=== PATIENT | female | born 1950 | race Caucasian/White ===

== ENCOUNTER 2023-01-04 10:59 | Observation (INO) | payer MEDICARE, OTHER ==
[~2023-01-04 10:59] MED LIST: GASTROGRAFIN 30 ML BOT ONE
[2023-01-04 11:34] LABS: #Monocytes 0.4 thou/uL (0.11-0.59); #Neutrophils 4.4 thou/uL (1.40-6.50); %Basophils 0.6 % (0.0-1.0); %Eosinophils 0.4 % (0.0-10.0); %Lymphocytes 27.4 % (21.0-51.0); %Monocytes 6.3 % (0.0-10.0); %Neutrophils 65.2 % (42.0-75.0); Hematocrit 42.1 % (36.0-47.0); Hemoglobin 14.1 g/dL (12.0-16.0); Mean Corpuscular HGB CONC 33.5 g/dL (32.0-36.0); Mean Corpuscular Hemoglobin 31.8 pg (27.0-31.0); Mean Platelet Volume 10.3 fL (7.4-10.4); Platelet Count 210 10x3/uL (130-400); RBC Distribution Width 15.7 % (11.5-14.5); Red Blood Cell (RBC) Count 4.43 mill/uL (4.20-5.40); White Blood Cell (WBC) Count 6.7 10x3/uL (4.8-10.8)
[2023-01-04 11:47] LABS: PTT 28.8 sec (22.9-36.1); Prothrombin Time 13.4 sec (12.0-14.7)
[2023-01-04 11:57] LABS: ALT (SGPT) 10 U/L (8-55); AST (SGOT) 19 U/L (5-34); Albumin 4.2 g/dL (3.4-4.8); Alkaline Phosphatase 65 U/L (40-110); Anion Gap 13 mmol/L (10-20); BUN (Urea Nitrogen) 13 mg/dL (9.8-20.1); Bilirubin, Total 0.8 mg/dL (0.2-1.2); Calc. Creatinine Clearance 0 mL/min (70-130); Calcium 9.6 mg/dL (7.8-10.44); Carbon Dioxide 29 mmol/L (23-31); Chloride 99 mmol/L (98-107); Estimated GFR 83; Globulin 3.9 g/dL (2.4-3.5); Glucose 108 mg/dL (83-110); Lipase 19 U/L (8-78); Protein, Total 8.1 g/dL (5.8-8.1); Sodium 137 mmol/L (136-145)
[2023-01-04] MEDS ORDERED: Atropine Sulfate 1 mg/10 ml Syringe ONE (11:59)
[2023-01-04 12:02] LABS: Troponin I 0.012 ng/mL (< 0.028)
[2023-01-04 12:20] LABS: Magnesium 1.9 mg/dL (1.6-2.6)
[2023-01-04] MEDS ORDERED: Furosemide 40 MG/4 ML VIAL ONE (14:36)
[2023-01-04] MEDS ORDERED: Ondansetron ODT 4 MG TAB PO PRN (15:26)
[2023-01-04] MEDS ORDERED: Ondansetron PF 4 MG/2 ML Vial IVP PRN (15:26)
[2023-01-04] MEDS ORDERED: Acetaminophen 325 MG TAB PO PRN (15:26)
[2023-01-04] MEDS ORDERED: Acetaminophen 650 MG Suppository PR PRN (15:26)
[2023-01-04 15:39] VITALS: BMI 20.8
[2023-01-04 15:39] LABS: Bacteria/HPF None Seen HPF (None Seen); Bilirubin Negative (Negative); Blood, Urine Negative (Negative); CAUTI Indications for Culture Pelvic or flank pain; Clarity Clear (Clear); Glucose, Urine (Dipstick) Normal (Negative); Ketone, Urine Negative (Negative); Leukocyte Negative Leu/uL (Negative); Nitrite Negative (Negative); Protein, Urine (Dipstick) Negative (Neg-Trace); RBC/HPF 0-3 HPF (0-3); Specific Gravity, Urine 1.009 (1.002-1.036); Squamous Epithelial 0-3 HPF (0-3); Urobilinogen Normal mg/dL (Less than 2); WBC/HPF 0-3 HPF (0-3)
[2023-01-04 15:47] LABS: Urine Culture Reflex No No
[2023-01-04] MEDS ORDERED: Magnesium 2 GM/50 ML(in water) 2 GM in Premix 1 BAG IVPB SCH (16:00)
[2023-01-04] MEDS ORDERED: Electrolyte Replacement Protocol 1 EACH FS SCH (16:00)
[2023-01-04] MEDS: Nicotine 14 MG PATCH TD SCH (16:35)
[2023-01-04 18:33] LABS: Hematocrit 39.1 % (36.0-47.0); Hemoglobin 13.6 g/dL (12.0-16.0)
[2023-01-04 19:18] LABS: Troponin I 0.022 ng/mL (< 0.028)
[2023-01-04 22:47] LABS: Hematocrit 36.9 % (36.0-47.0); Hemoglobin 12.7 g/dL (12.0-16.0)
[2023-01-04 23:15] LABS: Troponin I 0.011 ng/mL (< 0.028)
[2023-01-05 04:54] LABS: Hematocrit 38.9 % (36.0-47.0); Hemoglobin 13.1 g/dL (12.0-16.0)
[2023-01-05 04:55] LABS: #Eosinphils 0.1 thou/uL (0.0-0.7); #Monocytes 0.5 thou/uL (0.11-0.59); #Neutrophils 3.2 thou/uL (1.40-6.50); %Basophils 0.6 % (0.0-1.0); %Eosinophils 1.2 % (0.0-10.0); %Lymphocytes 27.8 % (21.0-51.0); %Monocytes 9.2 % (0.0-10.0); %Neutrophils 60.8 % (42.0-75.0); Hematocrit 38.7 % (36.0-47.0); Hemoglobin 13.2 g/dL (12.0-16.0); Mean Corpuscular HGB CONC 34.1 g/dL (32.0-36.0); Mean Corpuscular Hemoglobin 31.9 pg (27.0-31.0); Mean Corpuscular Volume 93.5 fl (78.0-98.0); Mean Platelet Volume 10.4 fL (7.4-10.4); Platelet Count 187 10x3/uL (130-400); RBC Distribution Width 15.5 % (11.5-14.5); Red Blood Cell (RBC) Count 4.14 mill/uL (4.20-5.40); White Blood Cell (WBC) Count 5.2 10x3/uL (4.8-10.8)
[2023-01-05 05:21] LABS: Phosphorus 3.2 mg/dL (2.3-4.7)
[2023-01-05 05:23] LABS: Anion Gap 13 mmol/L (10-20); BUN (Urea Nitrogen) 14 mg/dL (9.8-20.1); Calc. Creatinine Clearance 67 mL/min (70-130); Calcium 8.8 mg/dL (7.8-10.44); Carbon Dioxide 27 mmol/L (23-31); Chloride 100 mmol/L (98-107); Estimated GFR 94; Glucose 110 mg/dL (83-110); Magnesium 2.3 mg/dL (1.6-2.6); Potassium 3.9 mmol/L (3.5-5.1); Sodium 136 mmol/L (136-145)
[2023-01-05 09:51] LABS: Hematocrit 38.3 % (36.0-47.0); Hemoglobin 13.2 g/dL (12.0-16.0)
[2023-01-05] MEDS ORDERED: Furosemide 40 MG/4 ML VIAL SLOW IVP SCH (10:00)
[2023-01-05] MEDS ORDERED: Metoprolol Tartrate 50 MG TAB PO SCH (15:00)
[2023-01-05] MEDS: Nicotine 14 MG PATCH TD SCH (15:58)
[2023-01-05 17:05] LABS: Hemoglobin 12.9 g/dL (12.0-16.0)
[2023-01-05] MEDS: Metoprolol Tartrate 50 MG TAB PO SCH (20:10)
[2023-01-05 23:01] LABS: Hematocrit 36.2 % (36.0-47.0); Hemoglobin 12.7 g/dL (12.0-16.0)
[2023-01-06] MEDS: Metoprolol Tartrate 50 MG TAB PO SCH (08:13)
[2023-01-06 12:13] VITALS: BP 164/70; TEMP 97.4
[2023-01-07] MEDS ORDERED: FLU VACC QS2023(65UP)/MF59C/PF 60 MCG/0.5 ML SYRINGE IM ONE (09:00)
== END 2023-01-06 12:55 | disposition home or self-care (01) ==
LOC: ERS 10:59 → 2SW 15:24
PROVIDERS: ADMIT Internal Medicine; ATTEND Internal Medicine
PROC: B246ZZZ Ultrasonography of Right and Left Heart (ICD-10-PCS; principal; 2023-01-04)
DX: R42 Dizziness and giddiness (principal); K92.1 Melena; I25.10 Atherosclerotic heart disease of native coronary artery without angina pectoris; I49.3 Ventricular premature depolarization; I11.0 Hypertensive heart disease with heart failure; I50.9 Heart failure, unspecified; Z90.11 Acquired absence of right breast and nipple; Z88.5 Allergy status to narcotic agent; Z91.041 Radiographic dye allergy status; Z91.018 Allergy to other foods; Z88.2 Allergy status to sulfonamides; Z79.899 Other long term (current) drug therapy
CPT/HCPCS: 71045; 74176; 80048; 80053; 81001; 83690; 83735 ×2; 83880; 84100; 84484 ×2; 85014 ×2; 85018 ×2; 85025 ×2; 85610; 85730; 86850; 86900; 86901; 93005; 93306; 96374; 96375 ×2; 96376 ×2; 99285; G0378 ×4; J0461; 36415; J1940; J3475; Q9963

== ENCOUNTER 2023-03-16 01:37 | Inpatient (IN) | payer OTHER ==
[2023-03-16 02:17] LABS: #Monocytes 0.9 thou/uL (0.11-0.59); #Neutrophils 5.1 thou/uL (1.40-6.50); %Basophils 0.4 % (0.0-1.0); %Eosinophils 0.4 % (0.0-10.0); %Lymphocytes 25.7 % (21.0-51.0); %Monocytes 10.7 % (0.0-10.0); %Neutrophils 62.4 % (42.0-75.0); Hematocrit 34.5 % (36.0-47.0); Hemoglobin 11.7 g/dL (12.0-16.0); Mean Corpuscular HGB CONC 33.9 g/dL (32.0-36.0); Mean Corpuscular Hemoglobin 32.5 pg (27.0-31.0); Mean Corpuscular Volume 95.8 fl (78.0-98.0); Platelet Count 202 10x3/uL (130-400); RBC Distribution Width 17.3 % (11.5-14.5); White Blood Cell (WBC) Count 8.1 10x3/uL (4.8-10.8)
[2023-03-16] MEDS ORDERED: Ipratropium/Albuterol 3 ML NEB ONE (02:40)
[2023-03-16] MEDS ORDERED: Nitroglycerin 2% Ointment 1 INCH/1 GM Packet ONE (02:40)
[2023-03-16] MEDS ORDERED: Magnesium 2 GM/50 ML BAG (IN WATER) ONE (02:41)
[2023-03-16 02:43] LABS: Troponin I 0.012 ng/mL (< 0.028)
[2023-03-16 02:46] LABS: ALT (SGPT) 9 U/L (8-55); AST (SGOT) 18 U/L (5-34); Albumin 3.3 g/dL (3.4-4.8); Alkaline Phosphatase 55 U/L (40-110); Anion Gap 9 mmol/L (10-20); BUN (Urea Nitrogen) 13 mg/dL (9.8-20.1); Bilirubin, Total 0.6 mg/dL (0.2-1.2); Calc. Creatinine Clearance 0 mL/min (70-130); Calcium 8.8 mg/dL (7.8-10.44); Carbon Dioxide 30 mmol/L (23-31); Chloride 101 mmol/L (98-107); Estimated GFR 92; Globulin 3.5 g/dL (2.4-3.5); Glucose 147 mg/dL (83-110); Potassium 3.9 mmol/L (3.5-5.1); Protein, Total 6.8 g/dL (5.8-8.1); Sodium 136 mmol/L (136-145)
[2023-03-16 07:00] LABS: Troponin I 0.013 ng/mL (< 0.028)
[2023-03-16 09:18] LABS: Troponin I Less than 0.010 ng/mL (< 0.028)
[2023-03-16] MEDS ORDERED: Bisacodyl 10 MG SUPP PR PRN (09:46)
[2023-03-16] MEDS ORDERED: Ondansetron PF 4 MG/2 ML Vial IVP PRN (09:46)
[2023-03-16] MEDS ORDERED: Dextrose 50% Abboject 50 ML SYRINGE SLOW IVP PRN (09:46)
[2023-03-16] MEDS ORDERED: Albuterol 2.5 MG (3 mL) NEB NEB PRN (09:46)
[2023-03-16] MEDS ORDERED: Dextrose 5% in Water 1,000 ML IV PRN (09:46)
[2023-03-16] MEDS ORDERED: Calcium Carbonate 500 MG ChewTAB PO PRN (09:46)
[2023-03-16] MEDS ORDERED: Acetaminophen 650 MG Suppository PR PRN (09:46)
[2023-03-16] MEDS ORDERED: HumaLOG 300 UNITS/3 ML VIAL SC PRN (09:46)
[2023-03-16] MEDS ORDERED: Ondansetron ODT 4 MG TAB PO PRN (09:46)
[2023-03-16] MEDS ORDERED: Glucagon 1 MG/ML KIT IM PRN (09:46)
[2023-03-16] MEDS ORDERED: Furosemide 20 MG TAB PO SCH (10:00)
[2023-03-16] MEDS ORDERED: Furosemide 40 MG (4 mL) VIAL ONE (11:19)
[2023-03-16] MEDS ORDERED: LevoFLOXacin 750 mg/D5W 150 ml Premix Bag ONE (11:19)
[2023-03-16] MEDS: LevoFLOXacin 750 mg/D5W 750 MG in Premix 1 BAG IVPB SCH (11:30)
[2023-03-16] MEDS: Furosemide 40 MG TAB PO SCH (11:31)
[2023-03-16] MEDS ORDERED: Furosemide 40 MG TAB ONE (11:33)
[2023-03-16] MEDS ORDERED: HumaLOG 300 UNITS/3 ML VIAL ONE (11:33)
[2023-03-16] MEDS: HumaLOG 300 UNITS/3 ML VIAL SC PRN (11:35)
[2023-03-16] MEDS: Ipratropium/Albuterol 3 ML NEB NEB SCH (12:24)
[2023-03-16] MEDS ORDERED: Simvastatin 40 MG TAB PO SCH (21:00)
[2023-03-16] MEDS: Metoprolol Tartrate 100 MG TAB PO SCH (21:57)
[2023-03-16] MEDS: Famotidine 20 MG TAB PO SCH (21:57)
[2023-03-16] MEDS: methylPREDNISolone Sod Succ 40 MG VIAL IVP SCH (21:57)
[2023-03-16] MEDS: Atorvastatin Calcium 20 MG TAB PO SCH (21:57)
[2023-03-17 05:55] LABS: #Monocytes 0.2 thou/uL (0.11-0.59); #Neutrophils 5.9 thou/uL (1.40-6.50); %Lymphocytes 9.3 % (21.0-51.0); %Monocytes 2.7 % (0.0-10.0); %Neutrophils 87.6 % (42.0-75.0); Hematocrit 31.4 % (36.0-47.0); Hemoglobin 10.5 g/dL (12.0-16.0); Mean Corpuscular HGB CONC 33.4 g/dL (32.0-36.0); Mean Corpuscular Hemoglobin 31.8 pg (27.0-31.0); Mean Corpuscular Volume 95.2 fl (78.0-98.0); Mean Platelet Volume 10.4 fL (7.4-10.4); Platelet Count 224 10x3/uL (130-400); RBC Distribution Width 17.2 % (11.5-14.5); White Blood Cell (WBC) Count 6.7 10x3/uL (4.8-10.8)
[2023-03-17 06:14] LABS: ALT (SGPT) 9 U/L (8-55); AST (SGOT) 16 U/L (5-34); Albumin 3.2 g/dL (3.4-4.8); Alkaline Phosphatase 54 U/L (40-110); Anion Gap 11 mmol/L (10-20); BUN (Urea Nitrogen) 18 mg/dL (9.8-20.1); Bilirubin, Total 0.5 mg/dL (0.2-1.2); Calc. Creatinine Clearance 64 mL/min (70-130); Calcium 8.7 mg/dL (7.8-10.44); Carbon Dioxide 27 mmol/L (23-31); Chloride 99 mmol/L (98-107); Estimated GFR 93; Globulin 3.2 g/dL (2.4-3.5); Glucose 189 mg/dL (83-110); Potassium 4.4 mmol/L (3.5-5.1); Protein, Total 6.4 g/dL (5.8-8.1); Sodium 133 mmol/L (136-145)
[2023-03-17] MEDS: Furosemide 40 MG TAB PO SCH (08:31)
[2023-03-17] MEDS: Aspirin Chewable 81 MG TAB PO SCH (08:31)
[2023-03-17] MEDS: Potassium Chloride 10 MEQ TAB PO SCH (08:31)
[2023-03-17] MEDS: Lisinopril 10 MG TAB PO SCH (08:31)
[2023-03-17] MEDS ORDERED: Non-Formulary Item 1 EACH (Potassium Chloride [Potassium Chloride] 10 MEQ Capsule.Er) PO SCH (09:00)
[2023-03-18] MEDS: Acetaminophen 325 MG TAB PO PRN (09:17)
[2023-03-18 18:49] LABS: #Monocytes 0.3 thou/uL (0.11-0.59); #Neutrophils 5.7 thou/uL (1.40-6.50); %Monocytes 3.8 % (0.0-10.0); %Neutrophils 80.8 % (42.0-75.0); Hematocrit 34.3 % (36.0-47.0); Hemoglobin 11.7 g/dL (12.0-16.0); Mean Corpuscular HGB CONC 34.1 g/dL (32.0-36.0); Mean Corpuscular Hemoglobin 31.8 pg (27.0-31.0); Mean Corpuscular Volume 93.2 fl (78.0-98.0); Platelet Count 311 10x3/uL (130-400); Red Blood Cell (RBC) Count 3.68 mill/uL (4.20-5.40); White Blood Cell (WBC) Count 7.1 10x3/uL (4.8-10.8)
[2023-03-18 19:12] LABS: ALT (SGPT) 10 U/L (8-55); AST (SGOT) 14 U/L (5-34); Albumin 3.3 g/dL (3.4-4.8); Alkaline Phosphatase 51 U/L (40-110); Anion Gap 11 mmol/L (10-20); BUN (Urea Nitrogen) 26 mg/dL (9.8-20.1); Bilirubin, Total 0.4 mg/dL (0.2-1.2); Calc. Creatinine Clearance 62 mL/min (70-130); Calcium 9.1 mg/dL (7.8-10.44); Carbon Dioxide 31 mmol/L (23-31); Chloride 95 mmol/L (98-107); Estimated GFR 90; Globulin 3.5 g/dL (2.4-3.5); Glucose 146 mg/dL (83-110); Potassium 4.1 mmol/L (3.5-5.1); Protein, Total 6.8 g/dL (5.8-8.1); Sodium 133 mmol/L (136-145)
[2023-03-18] MEDS: Senokot S 8.6-50 MG TAB PO PRN (20:55)
[2023-03-19 05:05] LABS: #Monocytes 0.2 thou/uL (0.11-0.59); #Neutrophils 5.8 thou/uL (1.40-6.50); %Monocytes 2.7 % (0.0-10.0); %Neutrophils 81.9 % (42.0-75.0); Hematocrit 33.3 % (36.0-47.0); Hemoglobin 11.1 g/dL (12.0-16.0); Mean Corpuscular HGB CONC 33.3 g/dL (32.0-36.0); Mean Corpuscular Hemoglobin 31.5 pg (27.0-31.0); Mean Corpuscular Volume 94.6 fl (78.0-98.0); Platelet Count 277 10x3/uL (130-400); RBC Distribution Width 16.8 % (11.5-14.5); Red Blood Cell (RBC) Count 3.52 mill/uL (4.20-5.40)
[2023-03-19 05:33] LABS: ALT (SGPT) 7 U/L (8-55); AST (SGOT) 13 U/L (5-34); Albumin 3.1 g/dL (3.4-4.8); Alkaline Phosphatase 51 U/L (40-110); Anion Gap 9 mmol/L (10-20); BUN (Urea Nitrogen) 23 mg/dL (9.8-20.1); Bilirubin, Total 0.4 mg/dL (0.2-1.2); Calc. Creatinine Clearance 62 mL/min (70-130); Carbon Dioxide 31 mmol/L (23-31); Chloride 96 mmol/L (98-107); Estimated GFR 92; Globulin 3.2 g/dL (2.4-3.5); Glucose 190 mg/dL (83-110); Potassium 4.2 mmol/L (3.5-5.1); Protein, Total 6.3 g/dL (5.8-8.1); Sodium 132 mmol/L (136-145)
[2023-03-20 05:32] LABS: #Monocytes 0.6 thou/uL (0.11-0.59); #Neutrophils 3.7 thou/uL (1.40-6.50); %Eosinophils 0.6 % (0.0-10.0); %Lymphocytes 37.2 % (21.0-51.0); %Monocytes 8.3 % (0.0-10.0); %Neutrophils 53.2 % (42.0-75.0); Hematocrit 34.9 % (36.0-47.0); Hemoglobin 11.8 g/dL (12.0-16.0); Mean Corpuscular HGB CONC 33.8 g/dL (32.0-36.0); Mean Corpuscular Hemoglobin 32.1 pg (27.0-31.0); Mean Corpuscular Volume 94.8 fl (78.0-98.0); Mean Platelet Volume 9.8 fL (7.4-10.4); Platelet Count 296 10x3/uL (130-400); RBC Distribution Width 16.8 % (11.5-14.5); Red Blood Cell (RBC) Count 3.68 mill/uL (4.20-5.40)
[2023-03-20 06:02] LABS: ALT (SGPT) 7 U/L (8-55); AST (SGOT) 13 U/L (5-34); Alkaline Phosphatase 44 U/L (40-110); Anion Gap 9 mmol/L (10-20); BUN (Urea Nitrogen) 24 mg/dL (9.8-20.1); Bilirubin, Total 0.4 mg/dL (0.2-1.2); Calc. Creatinine Clearance 59 mL/min (70-130); Carbon Dioxide 33 mmol/L (23-31); Chloride 95 mmol/L (98-107); Estimated GFR 87; Globulin 3.1 g/dL (2.4-3.5); Glucose 130 mg/dL (83-110); Magnesium 1.8 mg/dL (1.6-2.6); Potassium 3.9 mmol/L (3.5-5.1); Protein, Total 6.1 g/dL (5.8-8.1); Sodium 133 mmol/L (136-145)
[2023-03-20] MEDS: methylPREDNISolone Sod Succ 40 MG VIAL IVP SCH (09:38)
[2023-03-21 05:29] LABS: #Eosinphils 0.1 thou/uL (0.0-0.7); #Monocytes 0.6 thou/uL (0.11-0.59); #Neutrophils 3.9 thou/uL (1.40-6.50); %Basophils 0.1 % (0.0-1.0); %Eosinophils 1.6 % (0.0-10.0); %Lymphocytes 36.7 % (21.0-51.0); %Monocytes 8.4 % (0.0-10.0); Hematocrit 36.4 % (36.0-47.0); Hemoglobin 12.3 g/dL (12.0-16.0); Mean Corpuscular HGB CONC 33.8 g/dL (32.0-36.0); Mean Corpuscular Hemoglobin 31.6 pg (27.0-31.0); Mean Corpuscular Volume 93.6 fl (78.0-98.0); Mean Platelet Volume 9.9 fL (7.4-10.4); Platelet Count 336 10x3/uL (130-400); RBC Distribution Width 16.6 % (11.5-14.5); Red Blood Cell (RBC) Count 3.89 mill/uL (4.20-5.40); White Blood Cell (WBC) Count 7.5 10x3/uL (4.8-10.8)
[2023-03-21 05:44] LABS: Anion Gap 11 mmol/L (10-20); BUN (Urea Nitrogen) 23 mg/dL (9.8-20.1); Calc. Creatinine Clearance 54 mL/min (70-130); Calcium 9.1 mg/dL (7.8-10.44); Carbon Dioxide 32 mmol/L (23-31); Chloride 93 mmol/L (98-107); Estimated GFR 79; Glucose 109 mg/dL (83-110); Potassium 3.9 mmol/L (3.5-5.1); Sodium 132 mmol/L (136-145)
[2023-03-21 07:37] VITALS: BP 129/63; TEMP 98.1
== END 2023-03-21 11:48 | disposition home or self-care (01) | DRG 189 ==
LOC: ERS 01:37 → ERHOLD 05:47 → 2SW 15:17 → OBSVTOIN 03-18 13:05
PROVIDERS: ADMIT Internal Medicine Cardiovascular Disease; ATTEND Internal Medicine
DX: J96.21 Acute and chronic respiratory failure with hypoxia (principal); J44.1 Chronic obstructive pulmonary disease with (acute) exacerbation; I50.22 Chronic systolic (congestive) heart failure; I11.0 Hypertensive heart disease with heart failure; I25.2 Old myocardial infarction; Z88.8 Allergy status to other drugs, medicaments and biological substances; Z91.041 Radiographic dye allergy status; Z79.84 Long term (current) use of oral hypoglycemic drugs; Z79.899 Other long term (current) drug therapy; E78.5 Hyperlipidemia, unspecified; E11.9 Type 2 diabetes mellitus without complications; Z79.82 Long term (current) use of aspirin; F03.90 Unspecified dementia, unspecified severity, without behavioral disturbance, psychotic disturbance, mood disturbance, and anxiety; I49.3 Ventricular premature depolarization; R10.13 Epigastric pain; D64.9 Anemia, unspecified; Z88.0 Allergy status to penicillin; Z95.810 Presence of automatic (implantable) cardiac defibrillator; Z88.2 Allergy status to sulfonamides; Z91.013 Allergy to seafood; Z91.018 Allergy to other foods
CPT/HCPCS: 36415; 36416; 71045; 80048; 80053; 83735; 83880; 84484; 85025; 93005; 93010; 93306; 93880; 94640; 96375; 96376; G0378; J1815; J1940; J1956; J2920; J3475; J7620

== ENCOUNTER 2023-06-20 14:43 | Inpatient (IN) | payer OTHER ==
[2023-06-20] MEDS ORDERED: Acetaminophen 650 MG Suppository PR PRN (16:07)
[2023-06-20] MEDS ORDERED: Ondansetron PF 4 MG/2 ML Vial IVP PRN (16:07)
[2023-06-20] MEDS ORDERED: Ondansetron ODT 4 MG TAB PO PRN (16:07)
[2023-06-20] MEDS: Enoxaparin 40 MG (0.4 mL) SYRINGE SC SCH (16:53)
[2023-06-20] MEDS: cefTRIAXone\\ROCEPHIN 1 GM in Sodium Chloride 0.9% 100 ML IVPB SCH (16:53)
[2023-06-20] MEDS: Azithromycin 500 MG in Sodium Chloride 0.9% 250 ML 250 ML IVPB SCH (16:54)
[2023-06-20] MEDS: Furosemide 40 MG (4 mL) VIAL SLOW IVP SCH (16:54)
[2023-06-20] MEDS: methylPREDNISolone Sod Succ 40 MG VIAL IVP SCH (16:54)
[2023-06-20] MEDS ORDERED: Glucagon 1 MG/ML KIT IM PRN (17:53)
[2023-06-20] MEDS ORDERED: Dextrose 50% Abboject 50 ML SYRINGE SLOW IVP PRN (17:53)
[2023-06-20] MEDS ORDERED: Dextrose 5% in Water 1,000 ML IV PRN (17:53)
[2023-06-20] MEDS: Insulin Regular 300 UNITS/3 ML VIAL SC PRN (21:29)
[2023-06-20] MEDS: Montelukast Sodium 10 mg Tablet PO SCH (21:29)
[2023-06-20] MEDS: Famotidine 20 MG TAB PO SCH (21:29)
[2023-06-20] MEDS: Acetaminophen 325 MG TAB PO PRN (21:29)
[2023-06-20] MEDS: Atorvastatin Calcium 20 MG TAB PO SCH (21:29)
[2023-06-20] MEDS: metFORMIN 500 MG TAB PO SCH (21:29)
[2023-06-21 04:51] LABS: #Basophils Less than 0.03 10x3/uL (0.0-0.2); #Eosinphils Less than 0.03 10x3/uL (0.0-0.7); %Basophils 0.1 % (0.0-1.0); %Lymphocytes 6.9 % (21.0-51.0); %Monocytes 5.2 % (0.0-10.0); %Neutrophils 86.7 % (42.0-75.0); Hematocrit 44.2 % (36.0-47.0); Hemoglobin 14.2 g/dL (12.0-16.0); Mean Corpuscular HGB CONC 32.1 g/dL (32.0-36.0); Mean Corpuscular Hemoglobin 30.3 pg (27.0-31.0); Mean Corpuscular Volume 94.4 fL (78.0-98.0); Mean Platelet Volume 11.1 fL (7.4-10.4); Platelet Count 120 10x3/uL (130-400); RBC Distribution Width 18.4 % (11.5-14.5); Red Blood Cell (RBC) Count 4.68 mill/uL (4.20-5.40)
[2023-06-21 05:01] LABS: Anion Gap 18 mmol/L (10-20); BUN (Urea Nitrogen) 22 mg/dL (9.8-20.1); Calc. Creatinine Clearance 55 mL/min (70-130); Calcium 9.3 mg/dL (7.8-10.44); Carbon Dioxide 28 mmol/L (23-31); Chloride 94 mmol/L (98-107); Estimated GFR 87; Glucose 120 mg/dL (83-110); Potassium 4.2 mmol/L (3.5-5.1); Sodium 136 mmol/L (136-145)
[2023-06-21] MEDS: Furosemide 40 MG (4 mL) VIAL SLOW IVP SCH (06:48)
[2023-06-21] MEDS ORDERED: Lisinopril 10 MG TAB PO SCH (09:00)
[2023-06-21] MEDS: Empagliflozin 10 MG TAB PO SCH (09:59)
[2023-06-21] MEDS: Lisinopril 20 MG TAB PO SCH (09:59)
[2023-06-21] MEDS: TICAGRELOR 90 MG TABLET PO SCH (09:59)
[2023-06-21] MEDS: Enoxaparin 40 MG (0.4 mL) SYRINGE SC SCH (09:59)
[2023-06-21] MEDS: Senokot S 8.6-50 MG TAB PO PRN (09:59)
[2023-06-21] MEDS: Aspirin 81 mg Enteric Coated Tablet PO SCH (10:00)
[2023-06-21] MEDS: Insulin Regular 300 UNITS/3 ML VIAL SC PRN (10:00)
[2023-06-21] MEDS: HYDROcodone/Acetaminophen 5/325 mg Tablet PO PRN (14:01)
[2023-06-22 04:55] LABS: #Basophils Less than 0.03 10x3/uL (0.0-0.2); #Eosinphils Less than 0.03 10x3/uL (0.0-0.7); %Basophils 0.1 % (0.0-1.0); %Lymphocytes 5.3 % (21.0-51.0); %Monocytes 3.4 % (0.0-10.0); %Neutrophils 89.6 % (42.0-75.0); Hematocrit 39.6 % (36.0-47.0); Hemoglobin 12.8 g/dL (12.0-16.0); Mean Corpuscular HGB CONC 32.3 g/dL (32.0-36.0); Mean Corpuscular Hemoglobin 30.3 pg (27.0-31.0); Mean Corpuscular Volume 93.8 fL (78.0-98.0); Mean Platelet Volume 11.2 fL (7.4-10.4); Platelet Count 126 10x3/uL (130-400); RBC Distribution Width 17.9 % (11.5-14.5); Red Blood Cell (RBC) Count 4.22 mill/uL (4.20-5.40)
[2023-06-22 05:07] LABS: Anion Gap 15 mmol/L (10-20); BUN (Urea Nitrogen) 31 mg/dL (9.8-20.1); Calc. Creatinine Clearance 51 mL/min (70-130); Calcium 9.1 mg/dL (7.8-10.44); Carbon Dioxide 35 mmol/L (23-31); Chloride 89 mmol/L (98-107); Estimated GFR 79; Glucose 117 mg/dL (83-110); Potassium 3.6 mmol/L (3.5-5.1); Sodium 135 mmol/L (136-145)
[2023-06-22 05:25] VITALS: BMI 19.0
[2023-06-22] MEDS: Furosemide 40 MG (4 mL) VIAL SLOW IVP SCH (09:49)
[2023-06-22] MEDS ORDERED: Lidocaine 4% PF 5 ML AMP NEB SCH (10:00)
[2023-06-22] MEDS ORDERED: Ipratropium/Albuterol 3 ML NEB NEB SCH (10:00)
[2023-06-22] MEDS: Ipratropium/Albuterol 3 ML NEB NEB SCH (10:25)
[2023-06-22] MEDS: Ipratropium/Albuterol 3 ML NEB NEB PRN (12:42)
[2023-06-22] MEDS: fentaNYL 50 mcg/mL 1 mL Vial SLOW IVP SCH (20:19)
[2023-06-22] MEDS: methylPREDNISolone Sod Succ 40 MG VIAL IVP SCH (20:19)
[2023-06-22] MEDS: Lidocaine 2% Viscous Solution 10 ML, Aluminum & Magnesium Hydroxide 30 ML SSW SCH (20:48)
[2023-06-23 00:20] LABS: #Basophils Less than 0.03 10x3/uL (0.0-0.2); #Eosinphils Less than 0.03 10x3/uL (0.0-0.7); %Basophils 0.2 % (0.0-1.0); %Lymphocytes 5.2 % (21.0-51.0); %Monocytes 5.1 % (0.0-10.0); %Neutrophils 87.6 % (42.0-75.0); Hematocrit 42.2 % (36.0-47.0); Hemoglobin 13.8 g/dL (12.0-16.0); Mean Corpuscular HGB CONC 32.7 g/dL (32.0-36.0); Mean Corpuscular Volume 91.7 fL (78.0-98.0); Mean Platelet Volume 10.5 fL (7.4-10.4); Platelet Count 126 10x3/uL (130-400); RBC Distribution Width 18.1 % (11.5-14.5)
[2023-06-23 00:25] LABS: Anion Gap 15 mmol/L (10-20); BUN (Urea Nitrogen) 44 mg/dL (9.8-20.1); Calc. Creatinine Clearance 46 mL/min (70-130); Calcium 9.3 mg/dL (7.8-10.44); Carbon Dioxide 34 mmol/L (23-31); Chloride 92 mmol/L (98-107); Estimated GFR 70; Glucose 170 mg/dL (83-110); Sodium 137 mmol/L (136-145)
[2023-06-23 01:02] LABS: Hematocrit 41.6 % (36.0-47.0); Hemoglobin 13.6 g/dL (12.0-16.0); Mean Corpuscular HGB CONC 32.7 g/dL (32.0-36.0); Mean Corpuscular Hemoglobin 30.6 pg (27.0-31.0); Mean Corpuscular Volume 93.5 fL (78.0-98.0); Mean Platelet Volume 11.1 fL (7.4-10.4); Platelet Count 132 10x3/uL (130-400); Red Blood Cell (RBC) Count 4.45 mill/uL (4.20-5.40)
[2023-06-23] MEDS ORDERED: Furosemide 40 MG TAB PO SCH (07:30)
[2023-06-23] MEDS ORDERED: PROPOFOL 20 ML ONE (09:26)
[2023-06-23] MEDS ORDERED: Lidocaine 2% PF 5 ML VIAL ONE (09:26)
[2023-06-23] MEDS ORDERED: Rocuronium Bromide 10 MG/ML (10ML VIAL) ONE (09:27)
[2023-06-23] MEDS ORDERED: PHENYLEPHRINE-NS 100 MCG/ML 10 ML SYRINGE ONE (10:03)
[2023-06-23] MEDS ORDERED: SUGAMMADEX SODIUM 200 MG/2 ML VIAL ONE (10:08)
[2023-06-23] MEDS: Furosemide 40 MG (4 mL) VIAL SLOW IVP SCH (15:01)
[2023-06-23] MEDS: Ipratropium/Albuterol 3 ML NEB NEB SCH (18:12)
[2023-06-24] MEDS: Lisinopril 20 MG TAB PO SCH (21:17)
[2023-06-25] MEDS: predniSONE 20 MG TAB PO SCH (08:57)
[2023-06-25] MEDS: ALPRAZolam 0.25 MG TAB PO SCH (12:38)
[2023-06-25 12:44] LABS: Bilirubin Negative (Negative); Blood, Urine Small (Negative); Glucose, Urine (Dipstick) >=1000 mg/dL (Negative); Ketone, Urine Trace mg/dL (Negative); Leukocyte Negative (Negative); Nitrite Negative (Negative); Protein, Urine (Dipstick) 30 mg/dL (Neg-Trace); Specific Gravity, Urine 1.025 (1.005-1.030); Urobilinogen 0.2 mg/dL (Less than 2)
[2023-06-25 12:46] LABS: Bacteria/HPF None Seen HPF (None Seen); CAUTI Indications for Culture Alt mental st,lethar; RBC/HPF 0-3 HPF (0-3); Squamous Epithelial 0-3 HPF (0-3); WBC/HPF 0-3 HPF (0-3)
[2023-06-25 12:47] LABS: Clarity Clear (Clear)
[2023-06-25 12:48] LABS: Urine Culture Reflex No No
[2023-06-26 04:58] LABS: Hematocrit 45.1 % (36.0-47.0); Hemoglobin 14.3 g/dL (12.0-16.0); Mean Corpuscular HGB CONC 31.7 g/dL (32.0-36.0); Mean Corpuscular Hemoglobin 30.4 pg (27.0-31.0); Mean Corpuscular Volume 95.8 fL (78.0-98.0); Mean Platelet Volume 11.1 fL (7.4-10.4); Platelet Count 92 10x3/uL (130-400); RBC Distribution Width 17.8 % (11.5-14.5); Red Blood Cell (RBC) Count 4.71 mill/uL (4.20-5.40)
[2023-06-26 05:19] LABS: Anion Gap 20 mmol/L (10-20); BUN (Urea Nitrogen) 41 mg/dL (9.8-20.1); Calc. Creatinine Clearance 54 mL/min (70-130); Calcium 9.8 mg/dL (7.8-10.44); Carbon Dioxide 33 mmol/L (23-31); Chloride 92 mmol/L (98-107); Estimated GFR 86; Glucose 128 mg/dL (83-110); Potassium 4.6 mmol/L (3.5-5.1); Sodium 140 mmol/L (136-145)
[2023-06-28 09:07] LABS: Actual Bicarbonate (HCO3a) 38.3 mEq/L (22-28); Base Excess (BEa) 5.8 mEq/L (-2.0 to +3.0); Calcium, Ionized (arterial) 1.33 mmol/L (1.12-1.30); Carboxyhemoglobin (COHb) 0.9 gm% (0.0-3.0); Hematocrit-ABG 44 % (36.0-47.0); O2 Tension (PaO2), arterial 69.3 mmHg (> 70.0); pH, Arterial 7.189 (7.35-7.45)
[2023-06-28 09:08] LABS: CO2 Tension 102.7 mmHg (35.0-45.0)
[2023-06-28 09:09] LABS: ALV-art Gradient 515.325 mmHg (0-20); Puncture Site LRA
[2023-06-28 10:30] LABS: Actual Bicarbonate (HCO3a) 30.8 mEq/L (22-28); Base Excess (BEa) 6.9 mEq/L (-2.0 to +3.0); CO2 Tension 40.9 mmHg (35.0-45.0); Calcium, Ionized (arterial) 1.21 mmol/L (1.12-1.30); Hematocrit-ABG 43 % (36.0-47.0); Hemoglobin (Hb) 14.7 g/dL (12.0-16.0); Potassium - ABG Lab 4.51 mmol/L (3.70-5.30); pH, Arterial 7.495 (7.35-7.45)
[2023-06-28 10:32] LABS: ALV-art Gradient 461.875 mmHg (0-20); O2 Tension (PaO2), arterial 57.4 mmHg (> 70.0); Puncture Site RRA
[2023-06-28] MEDS: methylPREDNISolone Sod Succ 40 MG VIAL IVP SCH (10:40)
[2023-06-28] MEDS ORDERED: Fentanyl CADD 100 ML IV SCH (10:45)
[2023-06-28] MEDS ORDERED: DISCONTINUE PREVIOUS NARCOTIC PAIN MEDICATIONS AND BENZODIAZEPINES FS SCH (10:45)
[2023-06-28] MEDS ORDERED: Lorazepam 2 MG/ML VIAL SLOW IVP PRN (10:45)
[2023-06-28] MEDS ORDERED: Fentanyl BOLUS 250 ML IVPB PRN (10:45)
[2023-06-28] MEDS ORDERED: Propofol BOLUS 1,000 MG/100 ML VIAL IV PRN (10:45)
[2023-06-28] MEDS: fentaNYL 50 mcg/mL 1 mL Vial ONE (10:51)
[2023-06-28] MEDS: Midazolam HCl 2 mg/2 ml Vial ONE (10:51)
[2023-06-28] MEDS: Propofol 1,000 MG/100 ML VIAL IV ONE (10:52)
[2023-06-28 11:08] LABS: Hematocrit 47.8 % (36.0-47.0); Hemoglobin 14.7 g/dL (12.0-16.0); Mean Corpuscular HGB CONC 30.8 g/dL (32.0-36.0); Mean Corpuscular Hemoglobin 30.1 pg (27.0-31.0); Mean Corpuscular Volume 97.8 fL (78.0-98.0); Platelet Count 80 10x3/uL (130-400); RBC Distribution Width 18.3 % (11.5-14.5); Red Blood Cell (RBC) Count 4.89 mill/uL (4.20-5.40)
[2023-06-28 11:19] LABS: Lactic Acid 2.3 mmol/L (0.5-2.2)
[2023-06-28 11:23] LABS: Anion Gap 18 mmol/L (10-20); BUN (Urea Nitrogen) 36 mg/dL (9.8-20.1); Calc. Creatinine Clearance 66 mL/min (70-130); Calcium 8.9 mg/dL (7.8-10.44); Carbon Dioxide 29 mmol/L (23-31); Chloride 100 mmol/L (98-107); Estimated GFR 95; Glucose 91 mg/dL (83-110); Potassium 4.3 mmol/L (3.5-5.1); Sodium 143 mmol/L (136-145)
[2023-06-28 11:51] LABS: Anisocytosis SLIGHT = 6-15 cells HPF (0-5); Band 6 % (5-11); Burr Cells SLIGHT = 2-5 cells HPF (0-1); Elliptocytes SLIGHT = 2-5 cells HPF (0-1); Lymphocytes 6 % (21-51); Metamyelocyte 2 % (0-0); Monocytes 1 % (0-10); Neutrophil 84 % (42-75); Nucleated RBC (Manual Ct) 1 % (0); Platelet Adequacy Comment Significant Decrease; Polychromasia SLIGHT = 2-3 cells HPF (0-2); Reactive Lymphocytes 1 % (0-10)
[2023-06-28 16:23] VITALS: BMI 19.2
[2023-06-28] MEDS: Propofol 1,000 MG/100 ML VIAL IV PRN (19:09)
[2023-06-28] MEDS: Famotidine/PF 20 mg/2ml Vial SLOW IVP SCH (21:45)
[2023-06-29 06:05] LABS: #Basophils Less than 0.03 10x3/uL (0.0-0.2); #Eosinphils Less than 0.03 10x3/uL (0.0-0.7); %Basophils 0.2 % (0.0-1.0); %Lymphocytes 12.2 % (21.0-51.0); %Neutrophils 76.9 % (42.0-75.0); Mean Corpuscular HGB CONC 32.6 g/dL (32.0-36.0); Mean Corpuscular Hemoglobin 30.1 pg (27.0-31.0); Mean Corpuscular Volume 92.5 fL (78.0-98.0); Mean Platelet Volume 11.1 fL (7.4-10.4); Platelet Count 80 10x3/uL (130-400); RBC Distribution Width 18.3 % (11.5-14.5); Red Blood Cell (RBC) Count 4.65 mill/uL (4.20-5.40)
[2023-06-29 07:10] LABS: Anion Gap 22 mmol/L (10-20); BUN (Urea Nitrogen) 40 mg/dL (9.8-20.1); Calc. Creatinine Clearance 52 mL/min (70-130); Calcium 9.5 mg/dL (7.8-10.44); Carbon Dioxide 30 mmol/L (23-31); Chloride 95 mmol/L (98-107); Estimated GFR 81; Glucose 98 mg/dL (83-110); Potassium 4.5 mmol/L (3.5-5.1); Sodium 142 mmol/L (136-145)
[2023-06-29] MEDS: methylPREDNISolone Sod Succ 40 MG VIAL IVP SCH (09:43)
[2023-06-29] MEDS: Aspirin Chewable 81 MG TAB PO SCH (09:43)
[2023-06-29 11:17] VITALS: TEMP 98.2
[2023-06-29 14:12] VITALS: BP 124/65
== END 2023-06-29 14:52 | disposition hospice, inpatient (51) | DRG 291 ==
LOC: 2SW 14:43 → OBSVTOIN 06-21 12:30 → ERHOLD 06-25 19:05 → 2SW 06-25 19:06 → MSONC 06-26 12:01 → CCU 06-28 09:37
PROVIDERS: ADMIT Family Medicine; ATTEND Hospitalist
PROC: 0BD88ZX Extraction of Left Upper Lobe Bronchus, Via Natural or Artificial Opening Endoscopic, Diagnostic (ICD-10-PCS; principal; 2023-06-23)
PROC: 0B9J8ZZ Drainage of Left Lower Lung Lobe, Via Natural or Artificial Opening Endoscopic (ICD-10-PCS; 2023-06-28)
PROC: 0B948ZZ Drainage of Right Upper Lobe Bronchus, Via Natural or Artificial Opening Endoscopic (ICD-10-PCS; 2023-06-28)
PROC: 0B9D8ZZ Drainage of Right Middle Lung Lobe, Via Natural or Artificial Opening Endoscopic (ICD-10-PCS; 2023-06-28)
PROC: 4A133R1 Monitoring of Arterial Saturation, Peripheral, Percutaneous Approach (ICD-10-PCS; 2023-06-28)
PROC: 0BH17EZ Insertion of Endotracheal Airway into Trachea, Via Natural or Artificial Opening (ICD-10-PCS; 2023-06-28)
PROC: 5A1945Z Respiratory Ventilation, 24-96 Consecutive Hours (ICD-10-PCS; 2023-06-28)
DX: I11.0 Hypertensive heart disease with heart failure (principal); I50.43 Acute on chronic combined systolic (congestive) and diastolic (congestive) heart failure; J96.21 Acute and chronic respiratory failure with hypoxia; J44.1 Chronic obstructive pulmonary disease with (acute) exacerbation; C78.7 Secondary malignant neoplasm of liver and intrahepatic bile duct; J95.89 Other postprocedural complications and disorders of respiratory system, not elsewhere classified; J98.11 Atelectasis; B37.89 Other sites of candidiasis; Z66 Do not resuscitate; Z51.5 Encounter for palliative care; R53.81 Other malaise; C80.1 Malignant (primary) neoplasm, unspecified; I25.10 Atherosclerotic heart disease of native coronary artery without angina pectoris; J44.9 Chronic obstructive pulmonary disease, unspecified; F17.210 Nicotine dependence, cigarettes, uncomplicated; K76.89 Other specified diseases of liver; F03.A0 Unspecified dementia, mild, without behavioral disturbance, psychotic disturbance, mood disturbance, and anxiety; R91.1 Solitary pulmonary nodule; E11.9 Type 2 diabetes mellitus without complications; E78.5 Hyperlipidemia, unspecified; Z85.3 Personal history of malignant neoplasm of breast; Z95.818 Presence of other cardiac implants and grafts; Z88.2 Allergy status to sulfonamides; Z91.013 Allergy to seafood; Z91.018 Allergy to other foods; Z79.82 Long term (current) use of aspirin; Z79.899 Other long term (current) drug therapy; Z86.73 Personal history of transient ischemic attack (TIA), and cerebral infarction without residual deficits; Z95.0 Presence of cardiac pacemaker; Z90.11 Acquired absence of right breast and nipple; Z71.6 Tobacco abuse counseling
CPT/HCPCS: 36415; 36416; 36600; 70553; 71045; 71250; 74177; 80048; 80053; 81001; 82805; 83605; 83690; 83735; 83880; 84484; 85025; 85027; 86300; 87040; 87070; 87077; 87086; 87186; 87205; 93005; 93010; 94002; 94003; 94640; 94760; 96365; 96375; J0456; J0692; J0696; J1200; J1650; J1815; J1940; J2001; J2250; J2704; J2920; J2930; J3010; J3370; J3490; J7050; J7512; J7611; J7620; Q9967; S0028

== ENCOUNTER 2023-06-29 15:09 | Inpatient (IN) | payer OTHER ==
[2023-06-29] MEDS ORDERED: Scopolamine 1 mg/72 hour Patch TOP PRN (15:30)
[2023-06-29] MEDS ORDERED: Haloperidol Lactate 5 MG/ML VIAL SLOW IVP PRN (15:30)
[2023-06-29] MEDS ORDERED: Acetaminophen 325 MG TAB PO PRN (15:30)
[2023-06-29] MEDS ORDERED: Ondansetron PF 4 MG/2 ML Vial IVP PRN (15:30)
[2023-06-29] MEDS ORDERED: Acetaminophen 650 MG Suppository PR PRN (15:30)
[2023-06-29] MEDS ORDERED: diphenhydrAMINE 50 MG/ML VIAL IVP PRN (15:30)
[2023-06-29] MEDS ORDERED: Senokot S 8.6-50 MG TAB PO PRN (15:30)
[2023-06-29] MEDS ORDERED: Lorazepam 2 MG/ML VIAL SLOW IVP PRN (15:30)
[2023-06-29] MEDS ORDERED: Hyoscyamine SL 0.125 MG TAB SL PRN (15:30)
[2023-06-29] MEDS: HYDROmorphone 0.5 MG/0.5 ML SYRINGE SLOW IVP PRN (15:40)
[2023-06-29] MEDS: Lorazepam 2 MG/ML VIAL SLOW IVP PRN (15:40)
== END 2023-06-29 16:04 | disposition expired | DRG 951 ==
LOC: CCU 15:09
PROVIDERS: ADMIT Internal Medicine Nephrology; ATTEND Internal Medicine Nephrology
DX: Z51.5 Encounter for palliative care (principal); J96.01 Acute respiratory failure with hypoxia; I50.43 Acute on chronic combined systolic (congestive) and diastolic (congestive) heart failure; C34.90 Malignant neoplasm of unspecified part of unspecified bronchus or lung; J44.1 Chronic obstructive pulmonary disease with (acute) exacerbation; Z66 Do not resuscitate; I25.10 Atherosclerotic heart disease of native coronary artery without angina pectoris; E11.9 Type 2 diabetes mellitus without complications; I11.0 Hypertensive heart disease with heart failure; Z91.041 Radiographic dye allergy status; Z88.8 Allergy status to other drugs, medicaments and biological substances; Z88.2 Allergy status to sulfonamides; Z88.5 Allergy status to narcotic agent; Z91.013 Allergy to seafood; Z79.899 Other long term (current) drug therapy; Z79.82 Long term (current) use of aspirin
CPT/HCPCS: J1170; J2060